=== PATIENT | male | born 1930 | race Caucasian/White ===

== ENCOUNTER 2021-06-23 11:41 | Emergency (ER) | payer OTHER ==
[~2021-06-23] VITALS: Ht 172.7 cm; Wt 80.7 kg
== END 2021-06-23 16:13 | disposition home or self-care (01) ==
LOC: ER 11:41
DX: R42 Dizziness and giddiness (principal); R53.1 Weakness

== ENCOUNTER 2021-07-17 15:26 | Outpatient (CLI) | payer OTHER | END 2021-07-17 15:43 | disposition home or self-care (01) | LOC: RAD 15:26 | PROVIDERS: ATTEND Internal Medicine | DX: L03.111 Cellulitis of right axilla (principal) ==

== ENCOUNTER → 2022-05-29 | Outpatient (CLI) | payer OTHER | END | disposition home or self-care (01) | LOC: RAD 12:34 | PROVIDERS: ATTEND Orthopaedic Surgery | DX: S62.647A Nondisplaced fracture of proximal phalanx of left little finger, initial encounter for closed fracture (principal) ==